=== PATIENT | female | born 1980 | race Caucasian/White ===

== ENCOUNTER 2017-04-15 17:21 | Emergency (ER) | payer BC ==
[~2017-04-15] VITALS: Ht 149.9 cm; Wt 66.4 kg
[~2017-04-15 17:21] MED LIST: BCPILLS PO; ESCI10TA17 PO; STR/80 PO
[2017-04-15 17:23] VITALS: TEMP 36.8; Ht 149.9 cm; Wt 66.4 kg
--- NOTE | 2017-04-15 18:20 | DIAGNOSTIC IMAGING REPORT ---
RIGHT VENOUS DOPP LOWER EXT UNILAT CLINICAL HISTORY: 37 years-old Female presenting with Right leg pain/numbness, Prolonged travel/immobilization Right. TECHNIQUE: Real-time grayscale and color and spectral Doppler ultrasound imaging of the veins of the right lower extremity was performed. Compression and augmentation were also utilized. COMPARISON: None. FINDINGS: Right: Common femoral vein: Patent. Femoral vein: Patent. Greater saphenous vein: Patent. Popliteal vein: Patent. Calf veins: Patent. Other: None. IMPRESSION: No evidence of deep venous thrombosis. Electronically signed by: Delroy Romero M.D. 04/15/2017 6:19 PM Dictated Date/Time: 04/15/2017 6:18 PM
--- NOTE | 2017-04-15 18:47 | EMERGENCY ROOM VISIT NOTE ---
History First contact with patient: 17:26 Chief Complaint: LEG PAIN,LEG INJURY Stated Complaint: LEG PAIN, LEG WENT NUMB, RECENT PLANE TRAVEL History of Present Illness The patient is a 37 year old female who presents to the Emergency Room via private vehicle with complaints of "leg pain, leg went numb, recent plane travel ". The patient states that Wednesday, Wednesday and Wednesday she was at a conference, and on her feet for much of a conference. She states that she took a six-hour plane back home, and noticed slight numbness in the right anterior fonseca, followed by some calf discomfort. She is concerned she may have a DVT. She denies any chest pain, shortness of breath or weakness. She denies any speech troubles. Review of Systems A complete 6-point Review of Systems was discussed with the patient, with pertinent positives and negatives listed in the History of Present Illness. All remaining Review of Systems questions can be considered negative unless otherwise specified. Past Medical/Surgical History No pertinent. Family History FHx: alcoholism Social History Smoking Status: Former Smoker Marital Status: Occupation Status: employed Current/Historical Medications No Active Prescriptions or Reported Meds Physical Exam Vital Signs Date Time Temp Pulse Resp B/P (MAP) Pulse Ox O2 Delivery O2 Flow Rate FiO2 04/15/17 18:52 74 16 160/94 100 04/15/17 17:23 36.8 74 16 160/94 100 Physical Exam VITAL SIGNS - Vital signs and nursing notes were reviewed. Patient is afebrile , hypertensive 160/94, non-tachycardic and is saturating well on room air 100%. GENERAL - 37-year-old female appearing her stated age who is in no acute distress. Communicates well with provider and answers questions appropriately. SKIN - Without rashes. Negative petechial rashes. Right leg skin unremarkable. EXTREMITIES - No clubbing or peripheral cyanosis. No pretibial edema present. Unremarkable examination of the right lower extremity. There is decreased sensation to touch overlying the right anterior fonseca. +5/5 strength noted in UE /LE bilaterally. NEUROLOGIC - Cranial nerves II through XII grossly intact. Sensory intact to light touch throughout. Patellar reflexes +2/4. Medical Decision & Procedures ER Provider Diagnostic Interpretation: RIGHT VENOUS DOPP LOWER EXT UNILAT CLINICAL HISTORY: 37 years-old Female presenting with Right leg pain/numbness, Prolonged travel/immobilization Right. TECHNIQUE: Real-time grayscale and color and spectral Doppler ultrasound imaging of the veins of the right lower extremity was performed. Compression and augmentation were also utilized. COMPARISON: None. FINDINGS: Right: Common femoral vein: Patent. Femoral vein: Patent. Greater saphenous vein: Patent. Popliteal vein: Patent. Calf veins: Patent. Other: None. IMPRESSION: No evidence of deep venous thrombosis. Electronically signed by: Delroy Romero M.D. 04/15/2017 6:19 PM Dictated Date/Time: 04/15/2017 6:18 PM Medical Decision Patient was seen and evaluated as above. After obtaining a thorough history and physical examination decision was made to obtain an ultrasound of the right lower extremity to rule out DVT. This was negative. I believe the patient is likely experiencing a neurapraxia secondary to prolonged travel and she may have irritated one of the nerves in the leg. There is no evidence of systemic neurovascular deficit, CVA or other neurologic emergency. At this time she appears stable for outpatient management. She is to follow-up with family doctor regarding today's visit. She was educated upon worrisome symptoms which to return, had questions answered prior to discharge, and was discharged home in good condition. There is no drop foot, or evidence of neurovascular compromise that is emergent and the right lower extremity. In evaluation treatment this patient following differential diagnoses were entertained: DVT, cellulitis, neurapraxia, CVA, among others. Impression Primary Impression: Leg pain, right Additional Impression: Neuropraxia of leg Departure Information Dispostion Home / Self-Care Condition GOOD Prescriptions No Active Prescriptions or Reported Meds Referrals Juliano Blackmon D.OAzul (PCP) Patient Instructions My [facility] Additional Instructions You have been treated in the Emergency Department your leg pain and numbness. Laboratory results and imaging studies have ruled out any emergent causes for your abdominal pain which would warrant admission or surgery. No DVT. Please stay well hydrated. For pain control, you can use the following [id number] medicines (if >12 yo): - Regular strength (325mg/tab) Tylenol (acetaminophen) 2 tabs every 4-6 hours as needed. Do not exceed 12 tablets in a 24 hour period. Avoid taking more than 3 grams (3000 mg) of Tylenol per day. This includes any other sources of acetaminophen you may take on a regular basis. - Regular strength (200 mg/tab) Advil (ibuprofen) 1-2 tabs every 4-6 hours as needed. Do not exceed a dose of 3200 mg per day. Drink plenty of water and stay well hydrated. As with any trip to the Emergency Department, you should follow-up with your Primary Care Provider from today's visit. Return to the emergency department if your symptoms persist despite treatment plan outlined above or if the following symptoms occur: increased fevers, chills , worsening nausea/vomiting, blood in your stool or urine. Problem Qualifiers
[2017-04-15 18:52] VITALS: BP 160/94; PULSE 74; O2SAT 100
== END 2017-04-15 18:53 | disposition home or self-care (01) ==
LOC: C.EDB 17:22 → C.EDD 18:53
DX: M79.604 Pain in right leg (principal); G58.9 Mononeuropathy, unspecified; Z87.891 Personal history of nicotine dependence; Z81.1 Family history of alcohol abuse and dependence